=== PATIENT | male | born 1980 | race Asian ===

== ENCOUNTER 2023-12-30 20:35 | Emergency (ER) | payer OTHER ==
[~2023-12-30] VITALS: Ht 165.1 cm; Wt 63.5 kg
[2023-12-30 20:42] VITALS: BP_SYST 143; PULSE 84; RESP 18; TEMP 97.8; O2SAT 97
[2023-12-30] MEDS: DIPHTH,PERTUSS(ACELL),TET VAC 0.5 ML VIAL (Tdap) I.M. ONE (21:48)
[2023-12-30 22:07] VITALS: BP_SYST 143; PULSE 84; RESP 18; TEMP 97.8; O2SAT 97
== END 2023-12-30 22:07 | disposition home or self-care (01) ==
LOC: SED 20:35
DX: S61.211A Laceration without foreign body of left index finger without damage to nail, initial encounter (principal); Z79.899 Other long term (current) drug therapy; W26.0XXA Contact with knife, initial encounter; Y93.89 Activity, other specified; Y92.89 Other specified places as the place of occurrence of the external cause; Y99.8 Other external cause status
CPT/HCPCS: 90715; 99283